=== PATIENT | male | born 1975 | race Caucasian/White ===

== ENCOUNTER 2016-06-27 11:27 | Inpatient (IN) | payer OTHER ==
[2016-06-27] MEDS ORDERED: IOPAMIDOL 370 (76%) 100 ML VIAL IV ONE (11:28)
[2016-06-27] MEDS ORDERED: LACTATED RINGERS 1,000 ML ONE (12:31)
[2016-06-27 13:00] LABS: ABSOLUTE NEUTROPHIL COUNT 15.5 K/mm3 (1.8-7.7); BASO # 0.2 K/mm3 (0.0-0.2); BASO % 0.7 % (0.2-1.0); EOS # 0.1 (0.0-0.5); EOS % 0.6 % (0.9-2.9); HEMATOCRIT 45.3 % (32.0-52.0); HEMOGLOBIN 15.3 gm/l (14.0-18.0); IMM NEUT # 0.1 K/mm3 (0-0.2); IMM NEUT% 0.5 % (0-1); LYMPH # 3.2 (1.0-4.8); LYMPH % 15.2 % (15-45); MEAN CELL VOLUME 90.6 fl (80.0-94.0); MEAN CORPUSCULAR HEMOGLOBIN 30.6 pg (27.0-31.0); MEAN CORPUSCULAR HGB CONC 33.8 g/dl (33.0-37.0); MEAN PLATELET VOLUME 8.1 fl (7.4-10.4); MONO % 9.5 % (4-12); NEUT % 73.5 % (43-75); PLATELET COUNT 494 K/mm3 (130-400); RED CELL DISTRIBUTION WIDTH 11.9 % (11.5-14.5)
[2016-06-27 13:03] LABS: SPECIFIC GRAVITY 1.015 (1.001-1.030); URINE BILIRUBIN NEGATIVE (NEGATIVE); URINE BLOOD NEGATIVE (NEGATIVE); URINE GLUCOSE (UA) NEGATIVE (NEGATIVE); URINE LEUKOCYTE ESTERASE NEGATIVE (NEGATIVE); URINE NITRITE NEGATIVE (NEGATIVE); URINE PROTEIN NEGATIVE (NEGATIVE); URINE UROBILINOGEN NORMAL (0-1 mg/dl)
[2016-06-27 13:05] LABS: URINE APPEARANCE CLEAR; URINE COLOR DARK YELLOW
[2016-06-27 13:08] LABS: ALB/GLOB RATIO 1.2 (>1.0); ALBUMIN 4.2 gm/dL (3.5-5.7); CALCIUM 9.5 mg/dL (8.6-10.3)
--- NOTE | 2016-06-27 13:41 | CT ---
Exam: CT abdomen and pelvis with contrast COMPARISON: None INDICATION: Low abdominal pain. Constipation, elevated WBC. TECHNIQUE: CT examination of the abdomen and pelvis was obtained following the administration 100 mL [id number] intravenous contrast. FINDINGS: There are focal inflammatory changes within the left side of the pelvis, centered about the sigmoid colon where there is a focal hypodense collection measuring 5.1 x 4.1 x 4.0 cm which contains 2-3 tiny locules of gas. Given the underlying diverticulosis of the sigmoid colon as well as the focal bowel wall thickening in this location, findings are most compatible with a subacute diverticulitis with prominent phlegmonous changes and a developing abscess formation, a portion of which appears to be intramural. There is no bowel obstruction or free fluid. Of note, only a minimal amount of stool is present within the colon; patient describes constipation. Hepatic steatosis. The pancreas, spleen, kidneys, adrenal glands and gallbladder are all unremarkable. Lung bases are clear. 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 There is grade 1 spondylolisthesis of L5 on S1. No worrisome osseous abnormality is identified. IMPRESSION: 1. Findings most compatible with a subacute diverticulitis, with focal phlegmonous changes and developing partially intramural abscess involving the sigmoid colon. There is no free air, free fluid or bowel obstruction. Findings were discussed with Dr. Fay Bruce 1328 hours 06/27/2016. 2. Hepatic steatosis. 3. Grade 1 spondylolisthesis of L5 on S1 and partial ankylosis of the sacroiliac joints.
[2016-06-27] MEDS ORDERED: METRONIDAZOLE 500 MG/NS 100 ML 100 ML IV ONE (13:49)
[2016-06-27] MEDS ORDERED: CEFTRIAXONE 1 GRAM DUPLEX 50 ML IV ONE (13:49)
[2016-06-27 14:15] LABS: BAND 0 % (0-10); LYMPHOCYTE 21 % (15-45); NEUTROPHILS 71 % (43-75); TOTAL CELLS COUNTED 100
[2016-06-27 14:16] LABS: BASOPHIL 2 % (0-1); EOSINOPHIL 1 % (1-3); MONOCYTE 5 % (4-12); PLATELET ESTIMATE NORMAL (NORMAL)
[2016-06-27] MEDS ORDERED: PUMP TUBING ONE (15:26)
[2016-06-27] MEDS ORDERED: SODIUM CHLORIDE 0.9% FLUSH 10 ML ONE (15:27)
[2016-06-27] MEDS: SODIUM CHLORIDE 0.9% 1,000 ML IV SCH ×2 (15:32→23:56)
[2016-06-27 15:39] VITALS: BMI 33.8
[2016-06-27] MEDS ORDERED: BISACODYL 10 MG SUP PR PRN (16:33)
[2016-06-27] MEDS ORDERED: NICOTINE 14 MG PATCH 1 EACH TD PRN (16:33)
[2016-06-27] MEDS ORDERED: ONDANSETRON 4 MG/2ML 2 ML VIAL IV PRN (16:33)
[2016-06-27] MEDS ORDERED: LORAZEPAM 2 MG/ML 1ML SDV IV PRN (16:33)
[2016-06-27] MEDS ORDERED: BLISTEX LIPSTICK 1 EACH TP PRN (16:33)
[2016-06-27] MEDS ORDERED: SODIUM CHLORIDE 0.9% 100 ML IV PRN (16:33)
[2016-06-27] MEDS ORDERED: HYDROMORPHONE HCL 2 MG/ML SYRINGE IV PRN (16:54)
[2016-06-27] MEDS: PANTOPRAZOLE SODIUM 40 MG VIAL IV SCH (16:57)
[2016-06-27] MEDS: HYDROMORPHONE HCL 1 MG/ML SYRINGE IV PRN ×3 (16:58→19:44)
[2016-06-27] MEDS: METRONIDAZOLE 500 MG/NS 100 ML 500 MG in Premix (NS) 100 ml 1 EACH IV SCH (20:30)
[2016-06-28] MEDS: METRONIDAZOLE 500 MG/NS 100 ML 500 MG in Premix (NS) 100 ml 1 EACH IV SCH ×4 (01:52→19:48)
[2016-06-28] MEDS: KETOROLAC TROMETHAMINE 30 MG/ML 1 ML VIAL IV PRN ×2 (02:20→08:03)
[2016-06-28 06:11] LABS: ABSOLUTE NEUTROPHIL COUNT 12.2 K/mm3 (1.8-7.7); BASO # 0.1 K/mm3 (0.0-0.2); BASO % 0.6 % (0.2-1.0); EOS # 0.2 (0.0-0.5); EOS % 1.1 % (0.9-2.9); HEMATOCRIT 40.7 % (32.0-52.0); HEMOGLOBIN 13.5 gm/l (14.0-18.0); IMM NEUT # 0.1 K/mm3 (0-0.2); IMM NEUT% 0.6 % (0-1); LYMPH # 2.5 (1.0-4.8); LYMPH % 14.7 % (15-45); MEAN CELL VOLUME 92.1 fl (80.0-94.0); MEAN CORPUSCULAR HEMOGLOBIN 30.5 pg (27.0-31.0); MEAN CORPUSCULAR HGB CONC 33.2 g/dl (33.0-37.0); MEAN PLATELET VOLUME 8.4 fl (7.4-10.4); MONO % 11.8 % (4-12); NEUT % 71.2 % (43-75); PLATELET COUNT 457 K/mm3 (130-400); RED CELL DISTRIBUTION WIDTH 11.9 % (11.5-14.5)
[2016-06-28 06:34] LABS: CALCIUM 8.9 mg/dL (8.6-10.3)
--- NOTE | 2016-06-28 06:59 | HP ---
Alex Chaudhari ADMIT DATE: 06/27/2016 CHIEF COMPLAINT: Abdominal pain. HISTORY OF PRESENT ILLNESS: Alex is a 41-year-old male who is for the most part healthy. He presented to the emergency room with about a 6 day history of lower quadrant abdominal pain that has been going on for about the last 5 or 6 days. No fevers, no chills. He does feel like he needs to have a bowel movement, but really nothing is coming out. He has also been feeling a bit more fatigued than normal, but again no fevers, no chills, no nausea, no vomiting, no blood per rectum, no diarrhea. He presented to the emergency room for evaluation. CT scan revealed sigmoid diverticulitis with intramural abscess measuring 5 x 4 x 4 cm. He was subsequently referred to the hospitalist service for admission pending general surgery consult. REVIEW OF SYSTEMS: As noted above otherwise, negative. PAST MEDICAL HISTORY: 1. Hypertension. 2. Hyperlipidemia though he takes no medications as he has a intolerance to statins. PAST SURGICAL HISTORY: 1. Umbilical hernia x2. 2. Bilateral knee arthroplasties in the past. ALLERGIES: STATINS CAUSED MUSCLE ACHES. CURRENT MEDICATIONS: 1. Lisinopril 10 mg by mouth daily. 2. Aspirin 81 mg by mouth daily. 3. Omeprazole 20 mg by mouth daily. 4. Glucosamine every morning. SOCIAL HISTORY: He works for a [employer] in [place]. He does smoke about a pack of cigarettes a day and drinks a moderate amount of alcohol. No history of withdraw. FAMILY HISTORY: Father at 55 of a myocardial infarction. Mother has had colon polyps. OBJECTIVE: VITAL SIGNS: Temperature 98.5, pulse 100, blood pressure 131/69, respirations 16, O2 sat 96% on room air. GENERAL: Well-developed, well-nourished young male, alert, calm, pleasant in no acute distress. HEENT: Benign. Tympanic membranes clear. Oropharynx is moist. NECK: Supple. LUNGS: Clear. HEART: Regular. ABDOMEN: Soft. He has tenderness to palpation in the bilateral lower quadrant and suprapubic area. Bowel tones are positive. EXTREMITIES: No edema. SKIN: There is no rashes. LABORATORY DATA: CBC with a white count of 21.0 with 71% neutrophils, 0% bands, 21% lymphs, 5% monocytes, and 1% eosinophils, hemoglobin 15.3, hematocrit 45.3, platelets of 494. Chemistry panel, sodium 135, potassium 3.5, chloride 102, carbon dioxide 24, BUN 12, creatinine 0.8, glucose of 104, total bilirubin 0.6, AST 16, ALT 26, alk phos 105, lipase of 18. Urinalysis is clear. DIAGNOSTICS: Abdominal/pelvic CT scan shows diverticulitis within the sigmoid colon with an associated 5 x 4 x 4 cm developing abscess. No other obstruction or other abnormalities. ASSESSMENT AND PLAN: 1. Sigmoid diverticulitis with an intramural abscess. He is admitted to the floor. We will keep him on Rocephin and Flagyl. Supportive care otherwise with intravenous medications for pain and nausea as needed. Will obtain general surgery consult when available. 2. Tobacco abuse. Nicotine patch as needed. 3. Moderate amount of alcohol use. No history of withdraw and patient has gone detention without any drinks at all. I think he is at minimal risk for withdraw. Use Ativan as needed for anxiety. JOB: [id number]
[2016-06-28] MEDS: SODIUM CHLORIDE 0.9% 1,000 ML IV SCH ×2 (07:45→20:41)
--- NOTE | 2016-06-28 09:07 | PCMCONS ---
General Surgery Consult: GENERAL SURGERY CONSULT CC: abdominal pain HPI: 41yo M with abdominal and left pelvic pain. This started about a week ago is generally constant and dull in nature, intermittently worsening with sharp pain at times. No flatus or BM in the last 24 hours. Does not feel hungry. He has never had a colonoscopy The patient denies any recent F/C/NV/CP/SOB, change in bladder fx, constipation , diarrhea, unintentional weight loss, easy bleeding/bruising, or other associated symptoms. REVIEW OF SYSTEMS CONSTITUTIONAL: As per HPI. EARS, NOSE, MOUTH, THROAT: ~No sneezing or runny nose CARDIOVASCULAR: ~As per HPI. RESPIRATORY: ~As per HPI. GASTROINTESTINAL: ~As per HPI. GENITOURINARY: ~As per HPI. NEUROLOGICAL: ~No history of seizures HEMATOLOGIC: ~As per HPI. MUSCULOSKELETAL: ~No change in strength. LYMPHATICS: ~No history of splenectomy. PSYCHIATRIC: ~No change in personality or affect PMH: HTN, HL PSH: Umbilical hernia repair x 2, bilateral knee surgery Meds: Lisinopril, ASA, Prilosec, Glucosamine All: Statins (muscle ache) SH: 1 PPD active smoker, drinks moderate amount of EtOH FH: No FH of colorectal cancer or IBD Vital Signs Last 72 Hours Temp Pulse Resp BP Pulse Ox 06/28/16 07:58 16 06/28/16 07:48 98.6 F 92 16 133/86 96 06/28/16 02:00 15 06/28/16 01:48 98.3 F 88 16 121/65 95 06/27/16 19:22 16 06/27/16 19:18 99.3 F 104 18 133/69 97 06/27/16 15:30 98.5 F 110 16 131/69 96 Physical Exam: General/Constitutional: Vitals documented above, comfortable in NAD Psych: A&O x 3, normal judgment and insight. Recent and remote memory intact. Mood and affect normal. Eyes: Pupils equal, no scleral icterus Ears, Nose, Mouth, Throat: gross hearing intact Neck: Supple Heart: RRR, no LE edema Lungs: Equal rise and fall of chest wall, non-labored breathing, no audible wheezes Neuro: Gross sensation intact Abdomen: Soft, obese, ND, mild LLQ and lower midline TTP, no guarding. Labs: Laboratory Results - last 24 hr 06/27/16 06/28/16 12:30 05:30 WBC 21.0 H 17.2 H RBC 5.00 4.42 L Hgb 15.3 13.5 L Hct 45.3 40.7 MCV 90.6 92.1 MCH 30.6 30.5 MCHC 33.8 33.2 RDW 11.9 11.9 Plt Count 494 H 457 H Neut % (Auto) 73.5 71.2 Lymph % (Auto) 15.2 14.7 L [place] % (Auto) 9.5 11.8 Baso % (Auto) 0.7 0.6 Absolute Neuts (auto) 15.5 H 12.2 H Neutrophils % (Manual) 71 Band Neutrophils % 0 Lymphocytes % (Manual) 21 Monocytes % (Manual) 5 Eosinophils % 0.6 L 1.1 Eosinophils % (Manual) 1 Basophils % 2 H Platelet Estimate Normal Normal RBC Morphology Normal Sodium 135 137 Potassium 3.5 L 3.6 Chloride 102 101 Carbon Dioxide 24 29 Anion Gap 13 11 BUN 12 15 Creatinine 0.8 0.9 Estimated GFR 106 H 93 BUN/Creatinine Ratio 15 17 Glucose 104 H 99 Calcium 9.5 8.9 Total Bilirubin 0.6 AST 16 ALT 26 Alkaline Phosphatase 105 H Total Protein 7.8 Albumin 4.2 Globulin 3.6 H Albumin/Globulin Ratio 1.2 Lipase 18 Urine Color Dark yellow Urine Appearance Clear Urine pH 6.0 Ur Specific [place] 1.015 Urine Protein Negative Urine Glucose (UA) Negative Urine Ketones Negative Urine Blood Negative Urine Nitrite Negative Urine Bilirubin Negative Urine Urobilinogen Normal Ur Leukocyte Esterase Negative % Immature Granulocyt 0.[address] A/P (06/28/16): FINDINGS: There are focal inflammatory changes within the left side of the pelvis, centered about the sigmoid colon where there is a focal hypodense collection measuring 5.1 x 4.1 x 4.0 cm which contains 2-3 tiny locules of gas. Given the underlying diverticulosis of the sigmoid colon as well as the focal bowel wall thickening in this location, findings are most compatible with a subacute diverticulitis with prominent phlegmonous changes and a developing abscess formation, a portion of which appears to be intramural. There is no bowel obstruction or free fluid. Of note, only a minimal amount of stool is present within the colon; patient describes constipation. Hepatic steatosis. The pancreas, spleen, kidneys, adrenal glands and gallbladder are all unremarkable. Lung bases are clear. 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 There is grade 1 spondylolisthesis of L5 on S1. No worrisome osseous abnormality is identified. IMPRESSION: 1. Findings most compatible with a subacute diverticulitis, with focal phlegmonous changes and developing partially intramural abscess involving the sigmoid colon. There is no free air, free fluid or bowel obstruction. Findings were discussed with Dr. Fay Bruce 1328 hours 06/27/2016. 2. Hepatic steatosis. 3. Grade 1 spondylolisthesis of L5 on S1 and partial ankylosis of the sacroiliac joints. A/P: 41yo M with improving Hinchey 1 diverticulitis (nany-colonic abscess). His HR has normalized, pain has improved, and WBC improve 21>17. Continue bowel rest (sips/ice chips OK), IVF, and IV Abx. If not done so already, I would ask radiology if this accessible for CT guided drainage; although I am not optimistic given the deep pelvic location. If radiology is not planning to drain the abscess, OK to start DVT chemo-prophylaxis from my standpoint. I discussed with the patient that he will need a colonoscopy in 6 weeks and encouraged a high fiber diet upon discharge from the hospital. Will follow along with you. Nathen Claudio MD General Surgery
[2016-06-28] MEDS ORDERED: MORPHINE SULFATE 2 MG/ML SYRINGE IV PRN (09:34)
[2016-06-28] MEDS ORDERED: NICOTINE 21 MG PATCH 1 EACH TD PRN (09:34)
[2016-06-28] MEDS ORDERED: MORPHINE SULFATE 4 MG/ML SYRINGE IV PRN (10:05)
[2016-06-28] MEDS: NICOTINE 14 MG PATCH 1 EACH TD PRN (10:24)
--- NOTE | 2016-06-28 10:32 | PDOC43 ---
- Subjective Chief Complaint: Diverticulitis Feeling better this AM. Pain improved. Subjective: Reports Pain Tolerable, Denies Bowel Movement, Denies Shortness of Breath, Denies Cough, Denies Chest Pain, Denies Nausea, Denies Vomiting, Denies Fever, Denies Chills - Objective Vital Signs Temperature 98.6 F 06/28/16 07:48 Pulse Rate 92 06/28/16 07:48 Respiratory Rate 16 06/28/16 07:58 Blood Pressure 133/86 06/28/16 07:48 O2 Saturation by Pulse Oximetry 96 06/28/16 07:48 Oxygen Delivery Method Room Air Oxygen Flow Rate 0 Intake and Output 06/27/16 06/28/16 06/29/16 06:59 06:59 06:59 Intake Total 3022 Balance 3022 General: Alert, Oriented x3, Cooperative, No Acute Distress HEENT: Atraumatic, PERRLA, Mucous membr. moist/pink Lungs: Clear to Auscultation Bilaterally Cardiovascular: Regular Rate and Rhythm Abdomen: Soft, Normal Bowel Sounds, Other (Minimal B LQ tenderness.), No Rebounding, No Involuntary Guarding Extremities: Edema, Normal Pulses Laboratory 06/28/16 05:30 06/28/16 05:30 Current Medications: Current meds reviewed in EMR. - Problems: Assessment/Plan (1) Diverticulitis of large intestine with abscess without bleeding Status: AcuteAssessment/Plan: Improved this AM. Discussed with radiology- abcess not amenable to CT guided drainage. As per gen surg will plan to con't IV abx for the next several days. Con't supportive care and bowel rest. Will plan on repeating CT before transitioning to po abx in next several days. Eventually will plan on d/c on po Cipro/Flagyl with close outpt f/u. Will need colonoscopy in 6-8 weeks. (2) HTN (hypertension) Qualifiers: Hypertension type: essential hypertension Qualifier Code: (I10) Essential (primary) hypertension Status: ChronicAssessment/Plan: Stable. VTE Prophylaxis: Lovenox. Disposition: Unknown.
[2016-06-28] MEDS ORDERED: IV START KIT ONE (13:08)
[2016-06-28] MEDS ORDERED: SODIUM CHLORIDE 0.9% FLUSH 10 ML ONE (13:09)
[2016-06-28] MEDS: HYDROMORPHONE HCL 1 MG/ML SYRINGE IV PRN ×3 (13:20→22:06)
[2016-06-28] MEDS ORDERED: CEFTRIAXONE 1 GRAM DUPLEX 1 G in Premix (D5W) 50 ml 1 EACH IV SCH (13:30)
[2016-06-28] MEDS ORDERED: SODIUM CHLORIDE 0.9% 500 ML IV SCH (14:30)
[2016-06-28] MEDS: PANTOPRAZOLE SODIUM 40 MG VIAL IV SCH (16:18)
[2016-06-29] MEDS: METRONIDAZOLE 500 MG/NS 100 ML 500 MG in Premix (NS) 100 ml 1 EACH IV SCH ×2 (02:11→07:28)
[2016-06-29] MEDS: SODIUM CHLORIDE 0.9% 1,000 ML IV SCH (05:12)
[2016-06-29 06:00] LABS: HEMOGLOBIN 12.5 gm/l (14.0-18.0); MEAN CELL VOLUME 92.5 fl (80.0-94.0); MEAN CORPUSCULAR HEMOGLOBIN 31.3 pg (27.0-31.0); MEAN CORPUSCULAR HGB CONC 33.8 g/dl (33.0-37.0); RED CELL DISTRIBUTION WIDTH 11.8 % (11.5-14.5)
[2016-06-29 06:15] LABS: CALCIUM 8.3 mg/dL (8.6-10.3)
[2016-06-29] MEDS: HYDROMORPHONE HCL 1 MG/ML SYRINGE IV PRN (07:21)
[2016-06-29] MEDS: NICOTINE 14 MG PATCH 1 EACH TD PRN (11:01)
--- NOTE | 2016-06-29 11:39 | PDOC43 ---
- Subjective Chief Complaint: Diverticulitis Patient reports feeling better. Pain in lower abd improved. Breathing fine. Ate liquid diet fine, would like to advance diet. Had loose BM today. INterested in going home, no new c/o. - Objective Vital Signs Temperature 98.2 F 06/29/16 07:52 Pulse Rate 73 06/29/16 07:52 Respiratory Rate 16 06/29/16 07:52 Blood Pressure 129/75 06/29/16 07:52 O2 Saturation by Pulse Oximetry 97 06/29/16 07:52 Oxygen Delivery Method Room Air Oxygen Flow Rate 0 Vital Signs Last 12 Hours Temp Pulse Resp BP Pulse Ox 06/29/16 07:52 98.2 F 73 16 129/75 97 06/29/16 07:24 16 06/29/16 02:00 20 06/29/16 01:23 97.9 F 85 20 110/61 95 Intake and Output 06/27/16 06/28/16 06/29/16 23:59 23:59 23:59 Intake Total 1300 4560 2339 Output Total 250 1725 Balance 1300 4310 614 General: Alert, Cooperative, No Acute Distress HEENT: Atraumatic Lungs: Clear to Auscultation Bilaterally, Normal Air Movement Cardiovascular: Regular Rate and Rhythm Abdomen: Soft, Tenderness (minimal tenderness lower abdomen.), Normal Bowel Sounds, Non-Distended Extremities: No Edema, No Tenderness Skin: Normal Color Neurological: Normal Speech Psych/Mental Status: Normal Affect, Normal Mood Laboratory 06/29/16 05:30 06/29/16 05:30 06/29/16 05:30 RBC 4.00 L MCH 31.3 H Estimated GFR 124 H Calcium 8.3 L Current Medications: Current meds reviewed in EMR. Active Medications FEN Sodium Chloride (Sodium Chloride 0.9%) 1,000 mls @ 125 mls/hr IV .Q8H [facility] Last Admin: 06/29/16 05:12 Dose: 125 mls/hr GI Pantoprazole Sodium (Protonix) 40 mg IV Q24H [facility] Last Admin: 06/28/16 16:18 Dose: 40 mg ID Ceftriaxone Sodium/Dextrose 1 (g/ Premix (D5W) 50 ml) 50 mls @ 100 mls/hr IV Q24H [facility] Last Admin: 06/28/16 13:25 Dose: 100 mls/hr Metronidazole 500 mg/ Sodium (Chloride) 100 mls @ 200 mls/hr IV Q6H [facility] Last Admin: 06/29/16 07:28 Dose: 200 mls/hr Pain Hydromorphone HCl (Dilaudid) 1 - 2 mg IV Q2H PRN PRN Reason: Pain Last Admin: 06/29/16 07:21 Dose: 1 mg Hydromorphone HCl (Dilaudid) 1 - 2 mg IV Q2H PRN PRN Reason: Pain Last Admin: 06/27/16 22:05 Dose: 2 mg PRN Bisacodyl (Dulcolax) 10 mg LA DAILY PRN PRN Reason: Constipation Lorazepam (Ativan) 1 mg IV Q8H PRN PRN Reason: Anxiety Morphine Sulfate (Morphine Sulfate) 2 - 4 mg IV Q2H PRN PRN Reason: Pain Last Admin: 06/28/16 10:26 Dose: 2 mg Morphine Sulfate (Morphine Sulfate) 2 - 4 mg IV Q2H PRN PRN Reason: Pain Nicotine (Nicoderm Cq) 1 each TD DAILY PRN PRN Reason: Withdrawal Symptoms Last Admin: 06/29/16 11:01 Dose: 1 each Ondansetron HCl (Zofran) 4 mg IV Q4H PRN PRN Reason: Nausea/Vomiting Last Admin: 06/28/16 15:20 Dose: 4 mg Petrolatum/Paraffin/Mineral Oil (Blistex) 1 each TP PRN PRN PRN Reason: Dry and/or chapped lips - Problems: Assessment/Plan (1) Diverticulitis of large intestine with abscess without bleeding Status: AcuteAssessment/Plan: Much improved this AM. Discussed with radiology- abcess not amenable to CT guided drainage. As per gen surg will plan to revise to PO abx. Anticipate d/c on po Cipro/Flagyl with close outpt f/u. Will need colonoscopy in 6-8 weeks. (2) HTN (hypertension) Qualifiers: Hypertension type: essential hypertension Qualifier Code: (I10) Essential (primary) hypertension Status: ChronicAssessment/Plan: Stable. VTE Prophylaxis: Mechanical. Disposition: Anticipate DC to home when taking orals well, probably later today
[2016-06-29] MEDS ORDERED: HYDROCODONE/ACETAMINOPHEN 5/325MG TABLET PO PRN (11:41)
[2016-06-29] MEDS ORDERED: CIPROFLOXACIN 500 MG TABLET PO SCH (11:45)
[2016-06-29] MEDS ORDERED: ACETAMINOPHEN 325 MG TABLET PO PRN (11:49)
--- NOTE | 2016-06-29 12:02 | PDOC43 ---
- Subjective S: Pain improved. Had one liquid BM yesterday. Ambulating. No other events. Physical Exam: General/Constitutional: Vitals documented above, comfortable in NAD Psych: A&O x 3, normal judgment and insight. Recent and remote memory intact. Mood and affect normal. Eyes: Pupils equal, no scleral icterus Ears, Nose, Mouth, Throat: gross hearing intact Neck: Supple Heart: RRR, no LE edema Lungs: Equal rise and fall of chest wall, non-labored breathing, no audible wheezes Neuro: Gross sensation intact Abdomen: Soft, ND, mild LLQ TTP (improved from yesterday), no guarding. A/P: 41yo M with improving Hinchey 1 diverticulitis. WBC normalized today. OK to advance diet to regular and transition to PO Abx. If he tolerates, OK for discharge from general surgery standpoint. Will need colonoscopy in 6 weeks. Nathen Claudio MD General Surgeon - Objective Vital Signs Temperature 98.2 F 06/29/16 07:52 Pulse Rate 73 06/29/16 07:52 Respiratory Rate 16 06/29/16 07:52 Blood Pressure 129/75 06/29/16 07:52 O2 Saturation by Pulse Oximetry 97 06/29/16 07:52 Oxygen Delivery Method Room Air Oxygen Flow Rate 0 Laboratory 06/29/16 05:30 06/29/16 05:30 06/29/16 05:30 RBC 4.00 L MCH 31.3 H Estimated GFR 124 H Calcium 8.3 L Active Medication Orders Category Date Time Status Acetaminophen [Tylenol] Med 06/29/16 11:49 Active 650 mg PO Q4H PRN Bisacodyl [Dulcolax] Med 06/27/16 16:33 Active 10 mg [place] DAILY PRN Ciprofloxacin [Cipro] Med 06/29/16 11:45 Active 500 mg PO BID Hydrocodone Bit/Acetaminophen [[place] 5/325] Med 06/29/16 11:41 Active 1 tab PO Q4H PRN Lip Turney [Blistex] Med 06/27/16 16:33 Active 1 each TP PRN PRN Metronidazole [Flagyl] Med 06/29/16 13:00 Active 500 mg PO QID Nicotine 14 mg Patch [Nicoderm Cq] Med 06/28/16 10:01 Active 1 each TD DAILY PRN Pantoprazole Sodium [Protonix] Med 06/27/16 16:45 Active 40 mg IV Q24H Sodium Chloride 0.9% 100 ml Med 06/27/16 16:33 Active IV PRN Sodium Chloride 0.9% Flush [Normal Saline 10ml Flush] Med 06/27/16 15:31 Active 10 ml IV PRN PRN Sodium Chloride 0.9% Flush [Normal Saline 10ml Flush] Med 06/27/16 17:00 Active 10 ml IV Q8HR Intake and Output 06/27/16 06/28/16 06/29/16 23:59 23:59 23:59 Intake Total 1300 4560 2339 Output Total 250 1725 Balance 1300 4286 778
[2016-06-29] MEDS: METRONIDAZOLE 500 MG TABLET PO SCH ×2 (12:39→16:56)
[2016-06-29] MEDS ORDERED: OXYCODONE/ACETAMINOPHEN 5/325 MG TABLET PO PRN (13:00)
[2016-06-29 14:18] VITALS: BP 149/99
[2016-06-29] MEDS: PANTOPRAZOLE SODIUM 40 MG VIAL IV SCH (15:49)
--- NOTE | 2016-06-30 18:01 | DS ---
JUSTICE KELLY [id number] DATE OF ADMISSION: June 27, 2016 DATE OF DISCHARGE: June 29, 2016 DISCHARGE DIAGNOSES: Are: 1. Sigmoid diverticulitis with intramural abscess formation, not amenable to CT drainage. 2. Tobacco use. 3. Moderate alcohol use without history of withdrawal. 4. Hypertension, on lisinopril. REASON FOR ADMISSION: The patient is a 41-year-old male who presented to the emergency room with a six-day history of lower abdominal pain. He described some tenesmus but no blood per rectum, no diarrhea, no fevers. In the emergency room, CT showed a sigmoid diverticulitis with intramural abscess measuring 5 x 4 x 4 cm, so was referred to the hospitalist service for admission and general surgery consult. Patient's lab on admission showed a white blood cell count of 21.0, hemoglobin 15.3, platelets 494. Chemistry profile, sodium 135, potassium 3.5, creatinine 0.8, glucose 104, AST 16, ALT 26, alkaline phosphatase 105, lipase 18. Urinalysis was unremarkable. Patient was admitted and started on Rocephin and metronidazole and had good clinical response. Patient remained afebrile the entire stay with a maximum temperature of 99.3 on the day of admission. Dr. Nathen Issa was consulted and it was felt that patient would be a good candidate for medical therapy with treatment and followup with Dr. Jenni Jean in the office in approximately ten days and then to be sure to get a followup colonoscopy in the next six weeks once this is healed up. Patient had gratifying response in his white blood cell count going from 21 to 17 to 10.2 by June 29, 2016. His potassium remained borderline low at 3.5 but electrolytes were otherwise normal. Vital signs remained stable. On June 29, 2016, his diet was advanced, IV antibiotics stopped, switched to oral antibiotics and pain medicine, and he was feeling well enough that he only wanted to have Tylenol rather than any narcotics. He is anticipated to be discharged this evening if he is able to tolerate the oral therapies and oral intake this evening. DISCHARGE MEDICATIONS: Will be: 1. Aspirin 81 mg daily. 2. Ciprofloxacin 500 mg orally twice daily. 3. [place] 5/325 one orally every four hours as needed. 4. Lisinopril 10 mg daily. 5. Metronidazole 500 mg orally four times daily times ten days as well. 6. Omeprazole 20 mg orally daily. FOLLOW UP: Follow up is with Dr. Jenni Jean on July 04, 2016 at 9:45 a.m. He is reminded to ask about getting a followup colonoscopy in the next six weeks. If he is unable to tolerate oral therapy, he will need to return for restart of IV therapy or if he is feeling sicker. CONDITION ON DISCHARGE: Is much improved. Cc: Jenni Jean M.D. Nela Armas PA-C
== END 2016-06-29 17:40 | disposition home or self-care (01) | DRG 392 ==
LOC: ED 11:27 → MS 14:29 → ICU 18:47 → MS 06-28 18:08
PROVIDERS: ADMIT Family Medicine; ATTEND Family Medicine
DX: K57.20 Diverticulitis of large intestine with perforation and abscess without bleeding (principal); F17.210 Nicotine dependence, cigarettes, uncomplicated; F10.20 Alcohol dependence, uncomplicated; I10 Essential (primary) hypertension; E78.5 Hyperlipidemia, unspecified; E88.89 Other specified metabolic disorders